=== PATIENT | female | born 1950 | race Native Hawaiian/Other Pacific Islander ===

== ENCOUNTER 2019-02-17 16:19 | Emergency (ER) | payer OTHER ==
[~2019-02-17] VITALS: Ht 160 cm; Wt 65.8 kg
[~2019-02-17 16:19] MED LIST: AMANTADINE100 M1 OR; AMLODIPINE BESYLATE PO; ASPIR-8181 MG OR; CARV3.12 PO; CHLO25TA12 PO; CHLO50TA22 PO; FLUTICASON50 MCG/ACT; HALO5INJ3 IM; INSU100P SC; LATUDA40 MG OR; LEVO-T50 MCG PO; LIPITOR10 MG PO; LORA0.5T17 PO; LORA2INJ21 INJ; METFTAB PO; NAMENDA XR28 MG OR; POLYETH GLYC3350 N1 OR; RIVADIS4 TOP; SERT100T PO; TRAVATAN Z0.004 % OP
[2019-02-17 16:20] VITALS: TEMP 97.7
[2019-02-17] MEDS ORDERED: LORA0.5T17 PO (16:59)
[2019-02-17 17:00] LABS: PLATELET COUNT 141 K/uL (152-353)
[2019-02-17] MEDS ORDERED: LORA1TAB17 PO (17:00)
[2019-02-17 17:03] VITALS: BP 145/67
[2019-02-17] MEDS ORDERED: OMEPRAZOLE DR20 MG PO (17:04)
[2019-02-17] MEDS ORDERED: DIVA500T2 PO (17:06)
[2019-02-17] MEDS ORDERED: SEROQUEL200 MG PO (17:06)
[2019-02-17] MEDS ORDERED: XALATAN0.005 % OTIC (17:07)
[2019-02-17] MEDS ORDERED: NOVOLIN R100 UNIT/1 IM (17:08)
[2019-02-17] MEDS ORDERED: TYLENOL325 MG PO (17:10)
== END 2019-02-17 17:03 | disposition other institution (70) ==
LOC: ED 16:19
PROVIDERS: Emergency Medicine
DX: F03.91 Unspecified dementia, unspecified severity, with behavioral disturbance (principal); Z04.6 Encounter for general psychiatric examination, requested by authority
CPT/HCPCS: 80053; 80164; 85027; 99285